=== PATIENT | female | born 1945 | race Caucasian/White ===

== ENCOUNTER → 2019-11-14 09:53 | Outpatient (BNVA) | payer MEDICARE, SELFPAY | PROVIDERS: Family Provider Family Medicine; PCP Family Medicine; Visit Provider Social Worker | DX: F33.1 Major depressive disorder, recurrent, moderate (principal); Z63.4 Disappearance and death of family member | CPT/HCPCS: 90834 ==

== ENCOUNTER → 2019-12-09 15:42 | Outpatient (BNVA) | payer MEDICARE, SELFPAY | PROVIDERS: Family Provider Family Medicine; PCP Family Medicine; Visit Provider Social Worker | DX: F33.1 Major depressive disorder, recurrent, moderate (principal); Z63.4 Disappearance and death of family member | CPT/HCPCS: 90834 ==

== ENCOUNTER → 2020-01-02 11:00 | Outpatient (BNVA) | payer MEDICARE, SELFPAY | PROVIDERS: Family Provider Family Medicine; PCP Family Medicine; Visit Provider Social Worker | DX: F33.1 Major depressive disorder, recurrent, moderate (principal); Z63.4 Disappearance and death of family member | CPT/HCPCS: 90834 ==

== ENCOUNTER → 2020-02-12 07:20 | Outpatient (BNVA) | payer MEDICARE, SELFPAY | PROVIDERS: Family Provider Family Medicine; PCP Family Medicine; Visit Provider Nurse Practitioner Psychiatric/Mental Health | DX: F33.1 Major depressive disorder, recurrent, moderate (principal); Z63.4 Disappearance and death of family member | CPT/HCPCS: 99213 ==

== ENCOUNTER 2020-02-26 14:23 | Outpatient (CLI) | payer MEDICARE, SELFPAY ==
--- NOTE | 2020-02-26 14:39 | XR_ITS ---
WS: [id number] LUMBAR SPINE: 3 VIEWS TECHNIQUE: AP, lateral and L5-S1 spot. HISTORY: SPONDYLOLISTHESIS COMPARISON: 11/14/2018 Posterior lumbar fusion from L4 to S1. L4 anterolisthesis by 8.6 mm. No lucency or fracture of the rivers rdware. Severe degenerative changes throughout the entire lumbar spine. Pedicles are all identified. Bone grafting along the lateral fusion hardware. Laminectomy defects at L4 and L5. SI joints are symmetric bilaterally. No soft tissue abnormalities. Moderate atherosclerosis aorta. XR/XR lumbar spine min 4V [id number] IMPRESSION: 1. Prior lumbar fusion at L4-5 with laminectomy defects. 2. Stable L4 anterolisthesis. 3. Severe lumbar spondylosis.
== END 2020-02-26 14:24 | disposition home or self-care (01) ==
LOC: RAD 14:31
PROVIDERS: Family Provider Family Medicine; PCP Family Medicine; Visit Provider Neurological Surgery
DX: M43.10 Spondylolisthesis, site unspecified (principal); M54.10 Radiculopathy, site unspecified; M54.5 Low back pain; M48.061 Spinal stenosis, lumbar region without neurogenic claudication; M43.26 Fusion of spine, lumbar region
CPT/HCPCS: 72114

== ENCOUNTER → 2020-02-27 08:26 | Outpatient (BNVA) | payer MEDICARE, SELFPAY | PROVIDERS: Family Provider Family Medicine; PCP Family Medicine; Visit Provider Social Worker | DX: Z63.4 Disappearance and death of family member (principal); F33.1 Major depressive disorder, recurrent, moderate | CPT/HCPCS: 90834 ==

== ENCOUNTER → 2020-03-19 08:31 | Outpatient (BNVA) | payer MEDICARE, SELFPAY | PROVIDERS: Family Provider Family Medicine; PCP Family Medicine; Visit Provider Social Worker | DX: Z63.4 Disappearance and death of family member (principal); F33.1 Major depressive disorder, recurrent, moderate | CPT/HCPCS: 90834 ==

== ENCOUNTER 2020-03-30 10:54 | Outpatient (CLI) | payer MEDICARE, SELFPAY ==
[2020-03-30 11:13] VITALS: BP 150/78; PULSE 77; RESP 18; TEMP 36.2; O2SAT 97; BMI 28.7
[2020-03-30] MEDS: denosumab 60 mg SDV SUBCUT (11:30)
== END 2020-03-30 10:55 | disposition home or self-care (01) ==
LOC: GILAB 10:58
PROVIDERS: Family Provider Family Medicine; PCP Family Medicine; Visit Provider Family Medicine
DX: M81.0 Age-related osteoporosis without current pathological fracture (principal)
CPT/HCPCS: 96372; J0897

== ENCOUNTER → 2020-04-13 08:12 | Outpatient (BNVA) | payer MEDICARE, SELFPAY | PROVIDERS: Family Provider Family Medicine; PCP Family Medicine; Visit Provider Social Worker | DX: Z63.4 Disappearance and death of family member (principal); F33.1 Major depressive disorder, recurrent, moderate | CPT/HCPCS: 90834 ==

== ENCOUNTER 2020-04-29 10:31 | Outpatient (CLI) | payer MEDICARE, SELFPAY ==
--- NOTE | 2020-04-29 10:42 | XR_ITS ---
WS: [id number] XR lumbar spine f/e only [id number] REASON FOR EXAM: LOW BACK PAIN/SPINAL STENOSIS LUMBAR REGION/RADICULOPATHY FINDINGS: This study shows posterior instrumentation L4-L5-S1 satisfactory seated and there is bone f usion also identified. There is retrolisthesis L2 to on L3 with eburnation along the articular surfaces and loss of the disc space. There is no fractures seen. With flexion extension is noted. XR/XR lumbar spine f/e only [id number] IMPRESSION: Stable fusion L4-L5-S1 1 with posterior instrumentation intraspinal fusion and bone fusion noted. Slight retrolisthesis L2 on 3 with loss of the disc spaces a nd suspected spinal stenosis.
== END 2020-04-29 10:32 | disposition home or self-care (01) ==
LOC: RAD 10:38
PROVIDERS: PCP Family Medicine; Visit Provider Physician Assistant Surgical
DX: M43.10 Spondylolisthesis, site unspecified (principal); M54.10 Radiculopathy, site unspecified; M54.5 Low back pain; M48.061 Spinal stenosis, lumbar region without neurogenic claudication; M43.27 Fusion of spine, lumbosacral region
CPT/HCPCS: 72120

== ENCOUNTER 2020-05-11 13:41 | Outpatient (CLI) | payer MEDICARE, SELFPAY ==
--- NOTE | 2020-05-11 13:48 | XR_ITS ---
WS: [id number] DEXA (DUAL ENERGY X-RAY ABSORPTIOMETRY) Bone mineral density was performed using a Polyheal machine. HISTORY: AGE RELATED OSTEOPOROSIS WITHOUT CURRENT PATH FX COMPARISON: None available. Left forearm BMD: 0.622 g/cm2. T score: -2.9 Z score: -0.4 Total hip BMD: Left: 0.791 g/cm2. T score: -1.7 Z score: 0.0 Right: 0.755 g/cm2. T score: -2.0 Z score: -0.2 Compared to the prior study from 05/09/2018. Bilateral hips bone mineral density has increased by 2.4%. XR/XR DEXA axial skeleton* [id number] IMPRESSION: OSTEOPOROSIS based upon the WHO classification for females. Patient has signifi cant risk for additional fractures. Slight improvement in bone mineral density within the hips since the prior stud y.
== END 2020-05-11 13:42 | disposition home or self-care (01) ==
PROVIDERS: Family Provider Family Medicine; PCP Family Medicine; Visit Provider Family Medicine
DX: M81.0 Age-related osteoporosis without current pathological fracture (principal)
CPT/HCPCS: 77080

== ENCOUNTER → 2020-05-21 08:36 | Outpatient (BNVA) | payer MEDICARE, SELFPAY | PROVIDERS: Family Provider Family Medicine; PCP Family Medicine; Referring Provider Family Medicine; Visit Provider Specialist | DX: G62.9 Polyneuropathy, unspecified (principal); R20.0 Anesthesia of skin; R55 Syncope and collapse; R53.1 Weakness | CPT/HCPCS: 99214 ==

== ENCOUNTER → 2020-06-11 11:09 | Outpatient (BNVA) | payer MEDICARE, SELFPAY | PROVIDERS: Family Provider Family Medicine; PCP Family Medicine; Visit Provider Dermatology | DX: L57.0 Actinic keratosis (principal); D18.01 Hemangioma of skin and subcutaneous tissue; L82.1 Other seborrheic keratosis; D23.9 Other benign neoplasm of skin, unspecified; B35.1 Tinea unguium; Z12.83 Encounter for screening for malignant neoplasm of skin | CPT/HCPCS: 17000; 17003; 99203; 99204 ==

== ENCOUNTER → 2020-06-12 07:36 | Outpatient (BNVA) | payer MEDICARE, SELFPAY | PROVIDERS: Family Provider Family Medicine; PCP Family Medicine; Visit Provider Nurse Practitioner Psychiatric/Mental Health | DX: F33.1 Major depressive disorder, recurrent, moderate (principal); Z63.4 Disappearance and death of family member | CPT/HCPCS: 99214 ==

== ENCOUNTER 2020-06-15 13:52 | Outpatient (CLI) | payer MEDICARE, SELFPAY ==
--- NOTE | 2020-06-15 14:15 | USCV_ITS ---
Maricruz Bravo Age: 75 Gender: F : 1945 Exam Date: 06/15/2020 14:10 Ordering Phys: Angely Flores MD Technologist: Bertha Aparicio Exam Location: [facility] [place] Indication: WEAKNESS Risk Factors: None Previous Vascular Surgery: None Right Brachial BP: / Left Brachial BP: / Right Left Velocity (cm/s) Spectral Plaque Velocity (cm/s) Spectral Plaque Syst/Diast Broadening Syst/Diast Broadening 78.80/ 17.80 Prox CCA 82.80 / 14.30 75.90/ 19.70 Mid CCA 74.60 / 16.40 59.30/ 12.40 Distal CCA 59.20 / 9.40 54.10/ 14.60 Prox ICA 106.00/ 26.80 59.70/ 13.90 Mid ICA 64.00 / 18.00 74.90/ 20.10 Distal ICA 63.60 / 17.90 83.20 ECA 67.80 0.99 ICA/CCA 1.42 Antegrade Vertebral Antegrade 56.20/ 12.50 cm/s 30.20/ 12.80 cm/s Tri Subclavian Bi 101.4 64.90 0 FINDINGS Comparison: none available. Waveforms are normal. No significant elevation of systolic or diastolic velocities. Minimal bilateral, scattered plaque with no elevation of velocity. CONCLUSIONS Bilateral ICA stenosis less than 50%. Dr. Cecilia Siddiqui DO (Electronically Signed) Final Date: 15 June 2020 16:18 S
== END 2020-06-15 13:53 | disposition home or self-care (01) ==
PROVIDERS: Family Provider Family Medicine; PCP Family Medicine; Visit Provider Specialist
DX: R53.1 Weakness (principal); I65.23 Occlusion and stenosis of bilateral carotid arteries
CPT/HCPCS: 93880

== ENCOUNTER → 2020-08-14 08:29 | Outpatient (BNVA) | payer MEDICARE, SELFPAY | PROVIDERS: Family Provider Family Medicine; PCP Family Medicine; Visit Provider Nurse Practitioner Psychiatric/Mental Health | DX: F33.1 Major depressive disorder, recurrent, moderate (principal); Z63.4 Disappearance and death of family member | CPT/HCPCS: 99213 ==

== ENCOUNTER → 2020-08-25 11:47 | Outpatient (BNVA) | payer MEDICARE, SELFPAY | PROVIDERS: Family Provider Family Medicine; PCP Family Medicine; Visit Provider Nurse Practitioner Family | DX: Z11.59 Encounter for screening for other viral diseases (principal); Z20.828 Contact with and (suspected) exposure to other viral communicable diseases; J06.9 Acute upper respiratory infection, unspecified | CPT/HCPCS: 87635 ==

== ENCOUNTER → 2020-09-28 08:02 | Day surgery (SDC) | payer MEDICARE, SELFPAY ==
[2020-09-28] MEDS: denosumab 60 mg SDV SUBCUT (08:15)
[2020-09-28 08:20] VITALS: BP 150/74; PULSE 79; RESP 18; TEMP 36.6; O2SAT 98
== END ==
PROVIDERS: PCP Family Medicine; Visit Provider Family Medicine
DX: M81.0 Age-related osteoporosis without current pathological fracture (principal)
CPT/HCPCS: 96372; 96374; 96375; J0897

== ENCOUNTER 2020-10-05 15:09 | Outpatient (CLI) | payer MEDICARE, SELFPAY ==
--- NOTE | 2020-10-05 15:17 | MM_ITS ---
WS: [id number] BILATERAL SCREENING DIGITAL MAMMOGRAM WITH CAD HISTORY: SCREENING COMPARISON: 08/23/2019 and 05/31/2018 Bilateral CC and MLO views submitted. Computer aided detection analyzed. Breast composition: There are scattered areas of fibroglandular density. No suspicious masses, microc alcifications or architectural distortion. MM/[place] [id number] IMPRESSION: BI-RADS: 1-Negative FOLLOW UP: 1 Year Follow-up
== END 2020-10-05 15:10 | disposition home or self-care (01) ==
LOC: RADSHAW 15:14
PROVIDERS: PCP Family Medicine; Visit Provider Family Medicine
DX: Z12.31 Encounter for screening mammogram for malignant neoplasm of breast (principal)
CPT/HCPCS: 77067

== ENCOUNTER → 2020-11-16 08:07 | Outpatient (BNVA) | payer MEDICARE, SELFPAY | PROVIDERS: PCP Family Medicine; Visit Provider Nurse Practitioner Psychiatric/Mental Health | DX: F33.1 Major depressive disorder, recurrent, moderate (principal); Z63.4 Disappearance and death of family member | CPT/HCPCS: 99213 ==

== ENCOUNTER → 2020-11-30 11:36 | Outpatient (BNVA) | payer MEDICARE, SELFPAY | PROVIDERS: PCP Family Medicine; Visit Provider Specialist | DX: G62.9 Polyneuropathy, unspecified (principal); Z87.891 Personal history of nicotine dependence | CPT/HCPCS: 99213 ==

== ENCOUNTER 2021-01-11 12:00 | Outpatient (CLI) | payer MEDICARE, SELFPAY | END 2021-01-11 12:01 | disposition home or self-care (01) | LOC: SLEEP 01-12 12:57 | PROVIDERS: PCP Family Medicine; Visit Provider Family Medicine | DX: G47.30 Sleep apnea, unspecified (principal) | CPT/HCPCS: G0399 ==

== ENCOUNTER → 2021-02-08 10:09 | Outpatient (BNVA) | payer MEDICARE, SELFPAY | PROVIDERS: PCP Family Medicine; Visit Provider Nurse Practitioner Psychiatric/Mental Health | DX: F33.1 Major depressive disorder, recurrent, moderate (principal); Z63.4 Disappearance and death of family member | CPT/HCPCS: 99213 ==

== ENCOUNTER → 2021-02-10 09:02 | Outpatient (BNVA) | payer OTHER, SELFPAY | PROVIDERS: PCP Family Medicine; Visit Provider Nurse Practitioner Psychiatric/Mental Health | DX: F33.1 Major depressive disorder, recurrent, moderate (principal) | CPT/HCPCS: 80061; 83036 ==

== ENCOUNTER → 2021-03-10 15:55 | Outpatient (BNVA) | payer MEDICARE, SELFPAY ==
[2021-02-25 09:52] VITALS: BP 145/58; BMI 29.4
== END ==
PROVIDERS: PCP Family Medicine; Visit Provider Podiatrist Foot & Ankle Surgery
DX: M79.672 Pain in left foot (principal); M79.671 Pain in right foot
CPT/HCPCS: 73630

== ENCOUNTER → 2021-03-26 13:01 | Day surgery (SDC) | payer MEDICARE, SELFPAY ==
[2021-02-25 09:52] VITALS: BP 145/58; BMI 29.4
[2021-03-26 13:16] VITALS: BP 158/70; PULSE 96; RESP 18; TEMP 36.4; O2SAT 100
[2021-03-26] MEDS: denosumab 60 mg SDV SUBCUT (13:17)
== END ==
PROVIDERS: PCP Family Medicine; Visit Provider Family Medicine
DX: M81.0 Age-related osteoporosis without current pathological fracture (principal)
CPT/HCPCS: 96372; J0897

== ENCOUNTER → 2021-05-24 07:08 | Outpatient (BNVA) | payer MEDICARE, SELFPAY ==
[2021-04-15 09:52] VITALS: BP 145/58; BMI 29.4
== END ==
PROVIDERS: PCP Family Medicine; Visit Provider Nurse Practitioner Psychiatric/Mental Health
DX: F33.1 Major depressive disorder, recurrent, moderate (principal); Z63.4 Disappearance and death of family member
CPT/HCPCS: 99214

== ENCOUNTER → 2021-06-23 08:43 | Outpatient (BNVA) | payer MEDICARE, SELFPAY ==
[2021-04-15 09:52] VITALS: BP 145/58; BMI 29.4
== END ==
PROVIDERS: PCP Family Medicine; Visit Provider Nurse Practitioner Psychiatric/Mental Health
DX: F33.1 Major depressive disorder, recurrent, moderate (principal); Z63.4 Disappearance and death of family member
CPT/HCPCS: 99214

== ENCOUNTER → 2021-07-28 09:49 | Outpatient (BNVA) | payer MEDICARE, SELFPAY ==
[2021-04-15 09:52] VITALS: BP 145/58; BMI 29.4
== END ==
PROVIDERS: PCP Family Medicine; Visit Provider Nurse Practitioner Psychiatric/Mental Health
DX: F33.1 Major depressive disorder, recurrent, moderate (principal); Z63.4 Disappearance and death of family member
CPT/HCPCS: 99214

== ENCOUNTER → 2021-08-02 15:09 | Outpatient (BNVA) | payer MEDICARE, SELFPAY ==
[2021-04-15 09:52] VITALS: BP 145/58; BMI 29.4
== END ==
PROVIDERS: PCP Family Medicine; Visit Provider Specialist
DX: G62.9 Polyneuropathy, unspecified (principal); G95.0 Syringomyelia and syringobulbia; G25.3 Myoclonus
CPT/HCPCS: 99213; 99214

== ENCOUNTER → 2021-08-25 10:46 | Outpatient (BNVA) | payer MEDICARE, SELFPAY ==
[2021-04-15 09:52] VITALS: BP 145/58; BMI 29.4
== END ==
PROVIDERS: PCP Family Medicine; Visit Provider Nurse Practitioner Psychiatric/Mental Health
DX: F33.1 Major depressive disorder, recurrent, moderate (principal); Z63.4 Disappearance and death of family member
CPT/HCPCS: 99214

== ENCOUNTER → 2021-09-17 09:25 | Day surgery (SDC) | payer MEDICARE, SELFPAY ==
[2021-04-15 09:52] VITALS: BP 145/58; BMI 29.4
[2021-09-17 09:31] VITALS: BMI 29.2
[2021-09-17 09:40] VITALS: BP 165/86; PULSE 72; RESP 18; TEMP 36.5; O2SAT 97
[2021-09-17] MEDS: denosumab 60 mg SDV SUBCUT (10:43)
== END ==
PROVIDERS: PCP Family Medicine; Visit Provider Family Medicine
DX: M81.0 Age-related osteoporosis without current pathological fracture (principal)
CPT/HCPCS: 36415; 82310; 96372; J0897

== ENCOUNTER 2021-10-13 10:34 | Outpatient (CLI) | payer MEDICARE, SELFPAY ==
[2021-04-15 09:52] VITALS: BP 145/58; BMI 29.4
--- NOTE | 2021-10-13 10:44 | MM_ITS ---
WS: [id number] BILATERAL DIGITAL SCREENING MAMMOGRAPHY WITH CAD CLINICAL INFORMATION: SCREENING HISTORY: Screening mammogram. No current complaints. COMPARISON: October 05, 2020 TECHNIQUE: Bilateral CC and MLO views. FINDINGS: Scattered fibroglandular densities bilaterally. Vascular calcification right breast. No suspicious fo angelita mass, asymmetry, calcifications, or architectural distortion. No evidence of malignancy. MM/[place] [id number] IMPRESSION: BI-RADS: 2-Benign FOLLOW UP: 1 Year Follow-up Recommend return to annual screening mammography.
== END 2021-10-13 10:35 | disposition home or self-care (01) ==
LOC: RADSHAW 10:43
PROVIDERS: PCP Family Medicine; Visit Provider Family Medicine
DX: Z12.31 Encounter for screening mammogram for malignant neoplasm of breast (principal)
CPT/HCPCS: 77067

== ENCOUNTER → 2021-11-25 11:33 | Outpatient (BNVA) | payer MEDICARE, SELFPAY ==
[2021-04-15 09:52] VITALS: BP 145/58; BMI 29.4
== END ==
PROVIDERS: PCP Family Medicine; Visit Provider Nurse Practitioner Psychiatric/Mental Health
DX: F33.1 Major depressive disorder, recurrent, moderate (principal); Z63.4 Disappearance and death of family member
CPT/HCPCS: 99213; 99214

== ENCOUNTER → 2021-12-08 15:18 | Outpatient (BNVA) | payer MEDICARE, SELFPAY ==
[2021-04-15 09:52] VITALS: BP 145/58; BMI 29.4
== END ==
PROVIDERS: PCP Family Medicine; Referring Provider Family Medicine; Visit Provider Specialist
DX: M25.542 Pain in joints of left hand (principal); M79.643 Pain in unspecified hand
CPT/HCPCS: 73130

== ENCOUNTER 2021-12-08 16:41 | Outpatient (CLI) | payer MEDICARE, SELFPAY ==
[2021-04-15 09:52] VITALS: BP 145/58; BMI 29.4
== END 2021-12-08 16:42 | disposition home or self-care (01) ==
LOC: SPT 16:41
PROVIDERS: PCP Family Medicine; Visit Provider Specialist
DX: Z46.89 Encounter for fitting and adjustment of other specified devices (principal); M18.12 Unilateral primary osteoarthritis of first carpometacarpal joint, left hand
CPT/HCPCS: 97760; L3924

== ENCOUNTER → 2022-03-03 13:31 | Outpatient (BNVA) | payer MEDICARE, SELFPAY ==
[2021-04-15 09:52] VITALS: BP 145/58; BMI 29.4
== END ==
PROVIDERS: PCP Family Medicine; Visit Provider Nurse Practitioner Psychiatric/Mental Health
DX: F33.1 Major depressive disorder, recurrent, moderate (principal)
CPT/HCPCS: 80061; 83036

== ENCOUNTER → 2022-03-16 08:55 | Day surgery (SDC) | payer MEDICARE, SELFPAY ==
[2021-04-15 09:52] VITALS: BP 145/58; BMI 29.4
[2022-03-16 09:20] VITALS: BP 143/63; PULSE 67; RESP 18; TEMP 36.1; O2SAT 97
[2022-03-16 09:33] LABS: Calcium 10.2 mg/dL (8.5-10.5)
--- NOTE | 2022-03-16 09:40 | PC.NURSE ---
Pt to GI lab for Prolia injection. Calcium level today 10.2. Prolia give subq to left upper arm. Tolerated well.
[2022-03-16] MEDS: denosumab 60 mg SDV SUBCUT (09:43)
== END ==
PROVIDERS: PCP Family Medicine; Visit Provider Family Medicine
DX: M18.10 Unilateral primary osteoarthritis of first carpometacarpal joint, unspecified hand (principal)
CPT/HCPCS: 36415; 82310; 96372; J0897

== ENCOUNTER → 2022-03-23 08:41 | Outpatient (BNVA) | payer MEDICARE, SELFPAY ==
[2021-04-15 09:52] VITALS: BP 145/58; BMI 29.4
== END ==
PROVIDERS: PCP Family Medicine; Visit Provider Nurse Practitioner Psychiatric/Mental Health
DX: F33.1 Major depressive disorder, recurrent, moderate (principal); Z63.4 Disappearance and death of family member
CPT/HCPCS: 99214

== ENCOUNTER → 2022-04-29 10:48 | Outpatient (BNVA) | payer MEDICARE, SELFPAY ==
[2022-03-25 13:48] VITALS: BP 153/69; BMI 29.8
== END ==
PROVIDERS: PCP Family Medicine; Visit Provider Otolaryngology
DX: H91.93 Unspecified hearing loss, bilateral (principal); H93.13 Tinnitus, bilateral; H65.33 Chronic mucoid otitis media, bilateral; H69.83 Other specified disorders of Eustachian tube, bilateral; M26.623 Arthralgia of bilateral temporomandibular joint; J30.9 Allergic rhinitis, unspecified
CPT/HCPCS: 99204

== ENCOUNTER → 2022-06-01 14:35 | Outpatient (BNVA) | payer MEDICARE, SELFPAY ==
[2022-03-25 13:48] VITALS: BP 153/69; BMI 29.8
== END ==
PROVIDERS: PCP Family Medicine; Visit Provider Podiatrist Foot & Ankle Surgery
DX: B35.1 Tinea unguium (principal); G62.9 Polyneuropathy, unspecified; I73.9 Peripheral vascular disease, unspecified; M76.72 Peroneal tendinitis, left leg
CPT/HCPCS: 11721; 99213

== ENCOUNTER → 2022-06-29 13:26 | Outpatient (BNVA) | payer MEDICARE, SELFPAY ==
[2022-03-25 13:48] VITALS: BP 153/69; BMI 29.8
== END ==
PROVIDERS: PCP Family Medicine; Visit Provider Otolaryngology
DX: H91.93 Unspecified hearing loss, bilateral (principal); H93.13 Tinnitus, bilateral; H69.83 Other specified disorders of Eustachian tube, bilateral
CPT/HCPCS: 99212; 99213

== ENCOUNTER 2022-07-06 16:15 | Outpatient (CLI) | payer MEDICARE, SELFPAY ==
[2022-03-25 13:48] VITALS: BP 153/69; BMI 29.8
== END 2022-07-06 16:16 | disposition home or self-care (01) ==
LOC: SPT 16:16
PROVIDERS: PCP Family Medicine; Visit Provider Podiatrist Foot & Ankle Surgery
DX: Z46.89 Encounter for fitting and adjustment of other specified devices (principal); M76.70 Peroneal tendinitis, unspecified leg; M18.12 Unilateral primary osteoarthritis of first carpometacarpal joint, left hand
CPT/HCPCS: 20610; 97760; 99213; J1100; J2795; J3301; L3030

== ENCOUNTER → 2022-08-24 11:21 | Outpatient (BNVA) | payer MEDICARE, SELFPAY ==
[2022-03-25 13:48] VITALS: BP 153/69; BMI 29.8
== END ==
PROVIDERS: PCP Family Medicine; Visit Provider Podiatrist Foot & Ankle Surgery
DX: M76.70 Peroneal tendinitis, unspecified leg (principal); G62.9 Polyneuropathy, unspecified; I73.9 Peripheral vascular disease, unspecified; L60.3 Nail dystrophy
CPT/HCPCS: 99213; 99214

== ENCOUNTER → 2022-09-16 08:59 | Day surgery (SDC) | payer MEDICARE, SELFPAY ==
[2021-04-15 09:52] VITALS: BP 145/58; BMI 29.4
[2022-03-25 13:48] VITALS: BP 153/69; BMI 29.8
[2022-09-16 09:24] VITALS: BP 162/75; PULSE 77; RESP 18; TEMP 36.6; O2SAT 98
[2022-09-16 09:39] LABS: Calcium 10.8 mg/dL (8.5-10.5)
[2022-09-16] MEDS: denosumab 60 mg SDV SUBCUT (09:42)
== END ==
PROVIDERS: PCP Family Medicine; Visit Provider Family Medicine
DX: M81.0 Age-related osteoporosis without current pathological fracture (principal)
CPT/HCPCS: 36415; 82310; 96372; J0897

== ENCOUNTER → 2022-10-18 09:18 | Outpatient (BNVA) | payer MEDICARE, SELFPAY ==
[2022-03-25 13:48] VITALS: BP 153/69; BMI 29.8
== END ==
PROVIDERS: PCP Family Medicine; Visit Provider Specialist
DX: G62.9 Polyneuropathy, unspecified (principal); I65.29 Occlusion and stenosis of unspecified carotid artery; R26.89 Other abnormalities of gait and mobility; Z86.73 Personal history of transient ischemic attack (TIA), and cerebral infarction without residual deficits
CPT/HCPCS: 99214

== ENCOUNTER → 2022-11-15 09:00 | Outpatient (BNVA) | payer MEDICARE, SELFPAY ==
[2022-03-25 13:48] VITALS: BP 153/69; BMI 29.8
== END ==
PROVIDERS: PCP Family Medicine; Visit Provider Nurse Practitioner Family
DX: S49.92XA Unspecified injury of left shoulder and upper arm, initial encounter (principal); X58.XXXA Exposure to other specified factors, initial encounter; M67.912 Unspecified disorder of synovium and tendon, left shoulder
CPT/HCPCS: 73030; 99214

== ENCOUNTER → 2022-11-24 10:16 | Outpatient (BNVA) | payer MEDICARE, SELFPAY ==
[2022-03-25 13:48] VITALS: BP 153/69; BMI 29.8
== END ==
PROVIDERS: PCP Family Medicine; Visit Provider Specialist
DX: M18.12 Unilateral primary osteoarthritis of first carpometacarpal joint, left hand (principal)
CPT/HCPCS: 20610; J1100; J2795; J3301

== ENCOUNTER 2022-11-24 14:55 | Outpatient (CLI) | payer MEDICARE, SELFPAY ==
[2022-03-25 13:48] VITALS: BP 153/69; BMI 29.8
== END 2022-11-24 14:56 | disposition home or self-care (01) ==
LOC: SPT 14:56
PROVIDERS: PCP Family Medicine; Visit Provider Specialist
DX: Z46.89 Encounter for fitting and adjustment of other specified devices (principal); M18.12 Unilateral primary osteoarthritis of first carpometacarpal joint, left hand
CPT/HCPCS: 97760; L3924

== ENCOUNTER 2022-12-01 08:11 | Outpatient (CLI) | payer MEDICARE, SELFPAY ==
[2022-03-25 13:48] VITALS: BP 153/69; BMI 29.8
--- NOTE | 2022-12-01 08:34 | MM_ITS ---
WS: [id number] BILATERAL SCREENING DIGITAL TOMOSYNTHESIS MAMMOGRAM WITH CAD HISTORY: SCREENING COMPARISON: 10/13/2021 and 10/05/2020 Bilateral CC and MLO views with tomosynthesis and synthetic mammography submitted. Computer aided det ection analyzed. Breast composition: There are scattered areas of fibroglandular density. No suspicious masses, microc alcifications or architectural distortion. MM/[place] [id number] IMPRESSION: BI-RADS: 1-Negative FOLLOW UP: 1 Year Follow-up
== END 2022-12-01 08:12 | disposition home or self-care (01) ==
LOC: RAD 08:11
PROVIDERS: PCP Family Medicine; Visit Provider Family Medicine
DX: Z12.31 Encounter for screening mammogram for malignant neoplasm of breast (principal)
CPT/HCPCS: 77063; 77067

== ENCOUNTER 2022-12-23 10:28 | Outpatient (CLI) | payer MEDICARE, SELFPAY ==
[2022-03-25 13:48] VITALS: BP 153/69; BMI 29.8
--- NOTE | 2022-12-23 11:00 | USCV_ITS ---
Maricruz Bravo Age: 77 Gender: F : 1945 Exam Date: 12/23/2022 11:06 Ordering Phys: Angely Flores MD Technologist: MIRANDA Exam Location: [facility] [place] Indication: TIA Risk Factors: Previous Vascular Surgery: Right Brachial BP: / Left Brachial BP: / Right Left Velocity (cm/s) Spectral Plaque Velocity (cm/s) Spectral Plaque Syst/Diast Broadening Syst/Diast Broadening 69.90/ 14.80 Prox CCA 87.80 / 19.40 90.90/ 21.80 Mid CCA 99.40 / 16.30 79.20/ 17.90 Distal CCA 61.10 / 13.80 46.60/ 10.50 Prox ICA 108.80/ 23.40 54.40/ 13.70 Mid ICA 85.80 / 21.10 65.30/ 18.30 Distal ICA 99.10 / 26.50 55.90 ECA 52.00 0.72 ICA/CCA 1.09 Vertebral 77.60/ 17.10 cm/s 37.40/ 7.50 cm/s Subclavian 146.6 72.30 0 CONCLUSIONS Right ICA stenosis <50%. Mild atheromatous plaque right carotid bulb/ICA. Left ICA stenosis <50%. Mild atheromatous plaque left carotid bulb/ICA. Normal antegrade Doppler flow noted in the right vertebral artery. Normal antegrade Doppler flow noted in the left vertebral artery. Timothy Vazquez MD (Electronically Signed) Final Date: 23 December 2022 12:29 S
== END 2022-12-23 10:29 | disposition home or self-care (01) ==
LOC: RAD 10:36
PROVIDERS: PCP Family Medicine; Visit Provider Specialist
DX: G45.9 Transient cerebral ischemic attack, unspecified (principal)
CPT/HCPCS: 93880

== ENCOUNTER → 2023-03-06 13:30 | Outpatient (BNVA) | payer MEDICARE, SELFPAY ==
[2022-03-25 13:48] VITALS: BP 153/69; BMI 29.8
== END ==
PROVIDERS: PCP Family Medicine; Visit Provider Otolaryngology
DX: H91.93 Unspecified hearing loss, bilateral (principal)
CPT/HCPCS: 99213

== ENCOUNTER → 2023-03-16 09:59 | Day surgery (SDC) | payer MEDICARE, SELFPAY ==
[2022-03-25 13:48] VITALS: BP 153/69; BMI 29.8
--- NOTE | 2023-03-16 09:42 | PC.NURSE ---
Lab results faxed to GI infusions from Diane Patel's clinic notes Calcium level drawn on 03/08/23 at 10.6.
[2023-03-16] MEDS: denosumab 60 mg SDV SUBCUT (10:10)
[2023-03-16 10:13] VITALS: BP 129/69; PULSE 84; RESP 18; TEMP 36.5; O2SAT 93
== END ==
PROVIDERS: PCP Family Medicine; Visit Provider Family Medicine
DX: M81.0 Age-related osteoporosis without current pathological fracture (principal)
CPT/HCPCS: 96372; J0897

== ENCOUNTER 2023-04-27 13:08 | Outpatient (CLI) | payer MEDICARE, SELFPAY ==
[2022-03-25 13:48] VITALS: BP 153/69; BMI 29.8
--- NOTE | 2023-04-27 13:15 | XR_ITS ---
WS: [id number] SCREENING DEXA SCAN AMT CLINICAL INFORMATION: AGE RELATED OSTEOPOROSIS WITHOUT CURRENT PATHOLOGICAL FRACTU COMPARISON: 2019 FINDINGS: The L1-L4 bone mineral density measures 0.63. This corresponds to a T score score of -2.8 and Z score of -0.1. Left femoral neck bone mineral density measures 0.820 g/cm2. This corresponds to a T score of -1.5 an d Z score of 0.3. Right femoral neck bone mineral density measures 0.757 g/cm2. This corresponds to a T score -2.0of an d Z score of -0.2. Mean femoral neck bone mineral density measures 0.788 g/cm2. This corresponds to a T score of -1.7 an d Z score of 0.1. XR/XR DEXA axial skeleton* [id number] IMPRESSION: Osteoporosis LEFT forearm. Osteopenia femoral necks. Patient's FRAX calculated 10 year probability for major osteoporotic fracture i s 26.8 % and osteoporotic hip fracture is 8.5%. Since 2019: Bone mineral density LEFT forearm increased 1.3% Bone mineral density femoral necks increased 1.9%
== END 2023-04-27 13:09 | disposition home or self-care (01) ==
PROVIDERS: PCP Family Medicine; Visit Provider Family Medicine
DX: Z13.820 Encounter for screening for osteoporosis (principal); M81.0 Age-related osteoporosis without current pathological fracture; M85.852 Other specified disorders of bone density and structure, left thigh; M85.851 Other specified disorders of bone density and structure, right thigh
CPT/HCPCS: 77080

== ENCOUNTER → 2023-07-25 09:02 | Outpatient (BNVA) | payer MEDICARE, SELFPAY ==
[2022-03-25 13:48] VITALS: BP 153/69; BMI 29.8
== END ==
PROVIDERS: PCP Family Medicine; Visit Provider Nurse Practitioner Family
DX: L57.0 Actinic keratosis (principal); L82.1 Other seborrheic keratosis; L81.4 Other melanin hyperpigmentation; L57.8 Other skin changes due to chronic exposure to nonionizing radiation
CPT/HCPCS: 17000; 17003; 99213

== ENCOUNTER 2023-09-21 09:51 | Oncology outpatient (recurring) (ONCR) | payer MEDICARE, SELFPAY ==
[2022-03-25 13:48] VITALS: BP 153/69; BMI 29.8
--- OUTSIDE RECORDS SUMMARY | 2023-09-21 09:54 | XMS_ITS | Continuity of Care Document ---
Author Name Unknown Organization [facility] Address [address] [place] [address]- Care Team Providers Care Telecommunication Tower Technician Name Role Phone Diane Patel MD Primary Care Physician [phone] Encounter 07/19/23 - 07/20/23 [facility] [address] [place] [address]- [place] Encounter Diagnosis Body mass index [BMI] 29.0-29.9, adult(Discharge Diagnosis) - 07/19/23 Swollen lymph nodes(Discharge Diagnosis) - 07/19/23 Attending Physician: Ingrid Sosa NP Allergies, Adverse Reactions, Alerts Substance Reaction Severity Status Shingrix Rash Active aspirin Rash Moderate Active Fosamax Bone pain Active Assessment and Plan Future Appointments Appointment Date:12/22/2023 09:00:00 AM Scheduled Provider: Location:[facility] Appointment Type:Lab Appointment Date:12/28/2023 10:00:00 AM Scheduled Provider:Diane Patel MD Location:[facility] Appointment Type:Established Patient Future Scheduled Tests Laboratory* Lipid Panel with calculated LDL 04/11/23 * CBC-d 04/11/23 * Iron and TIBC 04/11/23 * TSH 04/11/23 * CMP 04/11/23 Radiology* XR Knee 3 View Right 04/24/23 * BD Bone Densitometry 04/11/23 Immunizations Given and Recorded Vaccine Date Status Refusal Reason COVID-19 SARS-CoV-2 mRNA Pfizer (adult) 09/29/22 R ecorded COVID-19 SARS-CoV-2 mRNA Pfizer (adult) 1 03/30/22 Recorded COVID-19 SARS-CoV-2 mRNA Pfizer (adult) 9/29/21 R ecorded COVID-19 SARS-CoV-2 mRNA Pfizer (adult) 01/08/21 R ecorded COVID-19 SARS-CoV-2 mRNA Pfizer (adult) 12/11/20 R ecorded influenza virus vaccine 09/02/22 Recorded influenza virus vaccine 09/02/21 Recorded influenza virus vaccine 2 07/28/20 Recorded influenza virus vaccine 09/03/19 Recorded influenza virus vaccine 08/28/19 Recorded influenza virus vaccine 08/24/17 Given influenza virus vaccine 3 09/02/16 Recorded influenza virus vaccine 08/13/16 Recorded influenza virus vaccine 08/09/15 Given influenza virus vaccine 08/19/14 Given influenza virus vaccine 07/14/14 Given influenza virus vaccine 08/28/12 Given influenza virus vaccine 08/22/11 Given influenza virus vaccine 09/16/08 Given influenza virus vaccine 09/06/07 Given influenza virus vaccine 09/06/06 Given zoster vaccine Shingrix, inactivated 07/10/18 Jamison rded zoster vaccine Shingrix, inactivated 05/18/18 Jamison rded zoster vaccine Shingrix, inactivated 04/13/18 Jamison rded Prevnar 13 pneumococcal 13-valent 04/09/15 Given Tdap-ADULT/ADOL tetanus/diphth/pertuss,a 05/06/14 Given tetanus-diphth toxoids (Td) adult/adol 02/14/11 Gi maxi tetanus-diphth toxoids (Td) adult/adol 07/14/99 Gi maxi Pneumovax 23 pneumococcal 23-valent 11/09/10 Given Zoster Vaccine Live 10/28/10 Given 1Location History: [facility], 2Location History: [facility] 3Location History: [facility],[place] Medications acetaminophen-hydrocodone 325 mg-5 mg oral tablet 1 tab, By mouth, QID, PRN for pain, 28 tab, 0, 0, Substitution Permitted Start Date: 09/20/22 Status: Ordered acyclovir 800 mg oral tablet 800 mg = 1 tab, By mouth, 5XD, # 35 tab, Refill(s) 3, Pharmacy: [facility], [id number], 1 tab By mouth 5XD,x7 Days, 74.66, 04/11/23 10:18:00 CDT, kg, Weight (kg) (Clinical) Start Date: 05/11/23 Stop Date: 06/08/23 Status: Ordered buPROPion 200 mg/12 hours oral tablet, extended release 200 mg = 1 tab, By mouth, Daily, # 60 tab, Refill(s) 0 Start Date: 09/27/21 Status: Ordered Calcium 600+D 1 tab, By mouth, BID, last dose 12/04/19, Refill(s) 0 Start Date: 11/19/15 Status: Ordered Cpap Machine Cpap Machine, See Instructions, Use nightly as directed G47.30 Length of need 99, # 1 EA, Refills(s) 0, Print Requisition, Supply Start Date: 09/21/20 Status: Ordered Cpap Supplies, Cpap Cpap Supplies, Cpap, See Instructions, G47.30 Auto titrating CPAP 6 -14 cm H2O, # 1 EA, Refills(s) 0, Print Requisition, Supply Start Date: 01/21/21 Status: Ordered dorzolamide-timolol ophthalmic 2%-0.5% solution 1 Drops, Both Eyes, BID, # 10 mL, Refill(s) 0 Start Date: 07/19/22 Status: Ordered Fish Oil 500 mg oral capsule 1,000 mg, By mouth, Daily, # 60 cap, Refill(s) 0 Start Date: 09/21/20 Status: Ordered folic acid 0.4 mg, By mouth, Daily, last dose 12/04/19, Refill(s) 0 Start Date: 11/19/15 Status: Ordered gabapentin 600 mg oral tablet See Instructions, Take 1 tablet every morning, then take 1 tabs at noon and 2 tab every evening., #360 tab, Refill(s) 3, Pharmacy: [facility], [id number], Instructions Replace Required Details, TAB Start Date: 10/31/16 Status: Ordered latanoprost ophthalmic 0.005% solution 1 Drops, Both Eyes, at bedtime, # 2.5 mL, Refill(s) 0 Start Date: 09/20/19 Status: Ordered levothyroxine 50 mcg (0.05 mg) oral tablet = 1 tab, By mouth, Daily, # 90 tab, Refill(s) 2, Pharmacy: [facility], [id number], Take 1 tablet by mouth once daily, 74.66, 04/11/23 10:18:00 CDT, kg, Weight (kg) (Clinical) Start Date: 04/19/23 Status: Ordered MiraLax oral powder for reconstitution 17 = g, By mouth, Daily, Constipation, # 255 g, Refill(s) 0 Start Date: 08/03/15 Stop Date: 08/13/15 Status: Ordered Multivitamin By mouth, Daily, last dose 12/04/19, Refill(s) 0 Start Date: 08/03/15 Status: Ordered Prolia 60 mg/mL subcutaneous solution 60 mg, SubQ, Q6Mo, # 1 EA, Refill(s) 2 Start Date: 08/25/22 Status: Ordered propranolol 10 mg oral tablet 10 mg = 1 tab, By mouth, BID, # 180 tab, Refill(s) 0 Start Date: 09/27/21 Status: Ordered Refresh PM ophthalmic ointment 1 application, Both Eyes, at bedtime, for dry eyes, # 3.5 g, Refill(s) 0 Start Date: 04/04/22 Status: Ordered triamcinolone topical 0.1% cream 1 application, Topical, TID, # 30 g, Refill(s) 0, Route to Pharmacy Electronically, [facility]: [id number], [id number], 1 application Topical TID, 76.93, 07/19/22 9:26:00 CDT, kg, Weight Start Date: 07/19/22 Status: Ordered Vitamin B12 500 mcg oral tablet 500 mcg = 1 tab, By mouth, Daily, last dose 12/04/19, Refill(s) 0 Start Date: 05/22/19 Status: Ordered Vitamin D3 5000 intl units (125 mcg) oral capsule See Instructions, TAKE 1 CAPSULE BY MOUTH DAILY WITH FOOD, # 100 cap, Refill(s) 11, Pharmacy: [facility] #[id number], [id number], Instructions Replace Required Details, TAKE 1 CAPSULE BY MOUTH DAILY WITH FOOD, 63, 07... Start Date: 05/26/20 Status: Ordered Xanax 0.25 mg oral tablet 0.25 mg, By mouth, BID, PRN Anxiety, 15 EA, 0, 0, Substitution Permitted, [facility], 63, Height (inches) (Clinical), 04/11/23 10:15:00 CDT, in, 74.66, Weight (kg) (Clinical), 04/11/23 10:18:00 CDT, kg Start Date: 06/29/23 Status: Ordered Problem List Condition Confirmation Course Effective Dates Status Health Status Informant Spondylolisthesis, acquired Confirmed Active Trigger finger (acquired) Confirmed 09/09/14 Active Allergic urticaria Confirmed 02/04/15 Active Anemia Confirmed Active Generalized weakness Confirmed Active Benign positional vertigo Confirmed 02/04/15 Active Bilateral hearing loss Confirmed Active Weakness of both arms Confirmed Active Bone pain Confirmed Active Screening for breast cancer Confirmed Active Bursitis of right shoulder Confirmed Active Change in nail appearance Confirmed Active CKD (chronic kidney disease) Confirmed Active Constipation Confirmed 03/20/07 Active Contact dermatitis Confirmed Active Depression Confirmed 01/09/12 Active Patellofemoral pain syndrome of right knee Confirmed Active Peripheral neuropathy Confirmed 09/25/06 Active Dizziness Confirmed Active Leg edema, right Confirmed Active Lower leg edema Confirmed Active Ex-smoker Confirmed Active patient Fall from slipping on ice Confirmed Active Chronic GERD Confirmed Active History of iron deficiency anemia Confirmed 03/20/07 Active Headache Confirmed Active Hypercholesterolemia Confirmed 09/25/06 Active Hypothyroidism Confirmed 09/25/06 Active Balance problems Confirmed Active Right knee pain Confirmed Active Low back pain Confirmed Active Spondylolisthesis of lumbar region Confirmed Active Lung nodule Confirmed Active Myalgia and myositis Confirmed 11/16/11 Active Osteoporosis Confirmed Active Screening for colon cancer Confirmed Active Colon polyp 2004 Active Postmenopausal Confirmed Active Radicular syndrome of right leg Confirmed Active Shoulder pain Confirmed 04/09/15 Active Skin lesion Confirmed Active Sleep apnea Confirmed 03/07/13 Active Cervical spinal stenosis Confirmed Active Lumbar spinal stenosis Confirmed Active Dry eye syndrome Confirmed 04/11/14 Active 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 Active Tendonitis Confirmed 09/09/14 Active Tinnitus Confirmed Active Muscle tremor Confirmed Active Edema of both lower legs due to peripheral venous insufficiency Confirmed Active Vitamin D deficiency Confirmed Active Procedures Procedure Date Related Diagnosis Body Site Status Sleep study 1 01/11/21 Completed dexa 2, 3 05/11/20 Completed L4-S1 PLIF 01/14/20 Completed R TKA 05/29/19 Completed Removal of hardware right tibia 03/2019 Completed ORIF right radius fracture 2015 Completed external fixator application to right tibia 2014 Completed Colonoscopy 4 10/26/12 Completed Cataract extraction with Int raocular lens, bilateral 2006 Completed Breast lumpectomy 1998 Compl eted tonsillectomy Completed [place] teeth extraction. Completed 1Obstructive sleep apnea, nocturnal hypoxemia, 2Osteoporosis left forearm, osteopenia femoral necks, patient's FRAX calculated 10 year probability for major osteoporotic fracture is 26.8% and osteoporotic hip fracture is 8.5%, since 2019 bone density has increased by 1.3% in the left forearm and 1.9% in the left femoral necks, lumbar T-score is-2.8, left femoral neck T-score is-1.5, right femoral neck T-score is-2.0, mean femoral neck T- score is -1.7 3Osteoporosis, left forearm T-score is-2.9, left hip T-score is-1.7, right hip T-score is -2.0, bilateral hips bone mineral density has increased by 2.4% since her last exam 4Diverticulosis, repeat 5 years due to history of polyps 5Negative Vital Signs Most recent to oldest [Reference Range]: 1 Blood Pressure 122/76 (07/19/23 10:35 AM) Height (inches) (Clinical) 63 in (07/19/23 10:35 AM) Weight (kg) (Clinical) 74.55 kg (07/19/23 10:35 AM) BMI (Clinical) 29 kg/m2 (07/19/23 10:35 AM) Social History Social History Type Response Smoking Status Former smoker; Smoke less tobacco use: Never; Has the patient smoked in the last 365 days, even once? No entered on: 10/04/22 Sex Female Implantable Device List Procedure Provider Procedure Date Device Type Site Fusion Posterior Lumbar Interbody with I Unknown 01/14/20 Unknown Unknown Device Identifier Serial Number Lot or Batch Number Manufacturing Date Expiration Date Distinct Identification Code MRI Safety Implantable Status Assigning Authority [id number] Unknown [id number] Unknown 07/13/21 Unknown Unknown Active GS1 [id number] 01 Unknown [id number] Unknown 10/29/22 Unknown Unknown Active [facility] [id number] Unknown [id number] Unknown 05/14/27 Unknown Unknown Active GS1 [id number] Unknown [id number] Unknown 08/01/20 Unknown Unknown Active GS1 Unknown Unknown Unknown Unknown Unknown Unknown Unknown Active Unk nown Unknown Unknown Unknown Unknown Unknown Unknown Unknown Active Unk nown Unknown Unknown Unknown Unknown Unknown Unknown Unknown Active Unk nown Unknown Unknown Unknown Unknown Unknown Unknown Unknown Active Unk nown Unknown Unknown Unknown Unknown Unknown Unknown Unknown Active Unk nown Procedure Provider Procedure Date Device Type Site Arthroplasty Knee Total Unknown 05/29/19 Unknown U nknown Device Identifier Serial Number Lot or Batch Number Manufacturing Date Expiration Date Distinct Identification Code MRI Safety Implantable Status Assigning Authority Unknown Unknown [id number] Unknown 12/13/28 Unknown Unknown Active Unknown [id number] Unknown [id number] Unknown 09/12/20 Unknown Unknown Active GS1 [id number] [id number] Unknown [id number] Unknown 10/12/20 Unknown Unknown Active GS1 [id number] [id number] Unknown [id number] Unknown 10/12/20 Unknown Unknown Active GS1 [id number] 747 Unknown [id number] Unknown 10/12/20 Unknown Unknown Active GS1 [id number] 317 Unknown [id number] Unknown 06/25/23 Unknown Unknown Active GS1 [id number] 085 Unknown [id number] Unknown 01/10/29 Unknown MR Conditi onal Active GS1 Unknown Unknown [id number] Unknown 12/12/23 Unknown Unknown Active Unknown Unknown Unknown [id number] Unknown 08/12/23 Unknown Unknown Active Unknown Patient Care team information Care Team Personnel Name: Diane Patel MD Position: PX Physician - Family Practice Member Role: Primary Care Physician Address: Address: [address] [place] [address]- Care Team Related Persons Name: TOBY BENJAMIN Address: home Name: TOBY BENJAMIN Address: home Name: JULISA ELIAS Address: home
--- OUTSIDE RECORDS SUMMARY | 2023-09-21 09:54 | XMS_ITS | Continuity of Care Document ---
Author Name Unknown Organization [facility] Address [address] [facility] [place] [facility] [place] [address]- Care Team Providers Care Pediatric Occupational Therapist Name Role Phone Diane Patel MD Primary Care Physician [phone] Encounter 04/11/23 - 04/12/23 [facility] [address] [place] [address]- [place] Encounter Diagnosis Body mass index [BMI] 29.0-29.9, adult(Discharge Diagnosis) - 04/11/23 Change in nail appearance(Discharge Diagnosis) - 04/11/23 CKD (chronic kidney disease)(Discharge Diagnosis) - 04/11/23 Anemia(Discharge Diagnosis) - 04/11/23 Depression(Discharge Diagnosis) - 04/11/23 Hypercholesterolemia(Discharge Diagnosis) - 04/11/23 Hypothyroidism(Discharge Diagnosis) - 04/11/23 Osteoporosis(Discharge Diagnosis) - 04/11/23 Attending Physician: Diane Patel MD Allergies, Adverse Reactions, Alerts Substance Reaction Severity Status Fosamax Bone pain Active Shingrix Rash Active aspirin Rash Moderate Active Assessment and Plan Future Appointments Appointment Date:04/24/2023 11:00:00 AM Scheduled Provider:Ruy Harding Location:[facility] Appointment Type:Established Patient Appointment Date:12/22/2023 09:00:00 AM Scheduled Provider: Location:[facility] Appointment Type:Lab Appointment Date:12/28/2023 10:00:00 AM Scheduled Provider:Diane Patel MD Location:[facility] Appointment Type:Established Patient Future Scheduled Tests Laboratory* Lipid Panel with calculated LDL 04/11/23 * CBC-d 04/11/23 * Iron and TIBC 04/11/23 * TSH 04/11/23 * CMP 04/11/23 Radiology* BD Bone Densitometry 04/11/23 Immunizations Given and Recorded Vaccine Date Status Refusal Reason COVID-19 SARS-CoV-2 mRNA Pfizer (adult) 09/29/22 R ecorded COVID-19 SARS-CoV-2 mRNA Pfizer (adult) 1 03/30/22 Recorded COVID-19 SARS-CoV-2 mRNA Pfizer (adult) 08/11/21 R ecorded COVID-19 SARS-CoV-2 mRNA Pfizer (adult) [...] Zoster Vaccine Live 10/28/10 Given 1Location History: [facility], 2Location History[facility] 3Location History: [facility] Medications acetaminophen-hydrocodone 325 mg-5 mg oral tablet 1 tab, By mouth, QID, PRN for pain, 28 tab, 0, 0, Substitution Permitted Start Date: 09/20/22 Status: Ordered acyclovir 800 mg oral tablet 800 mg = 1 tab, By mouth, 5XD, # 35 tab, Refill(s) 3, [id number], [id number], 1 tab By mouth 5XD,x7 Days, 63, 03/22/21 13:03:00 CDT, in, 75.23, 03/22/21 13:03:00 CDT, kg, Weight Start Date: 03/22/21 Stop Date: 04/19/21 Status: Ordered buPROPion 200 mg/12 hours oral [...] Refill(s) 0 Start Date: 07/19/22 Status: Ordered Euthyrox 50 mcg (0.05 mg) oral tablet = 1 tab, By mouth, Daily, # 90 tab, Refill(s) 5, Pharmacy: [facility], [id number], 1 tab By mouth Daily, 79.2, 04/04/22 10:06:00 CDT, kg, Weight Start Date: 04/04/22 Status: Ordered Fish Oil 500 mg oral [...] every evening., #360 tab, Refill(s) 3, [facility]: [facility], [id number], Instructions Replace Required Details, TAB Start Date: 10/31/16 Status: Ordered latanoprost ophthalmic 0.005% solution 1 Drops, Both Eyes, at bedtime, # 2.5 mL, Refill(s) 0 Start Date: 09/20/19 Status: Ordered MiraLax oral powder for reconstitution [...] Route to Pharmacy Electronically, [facility]: [id number], [id number], 1 application Topical TID, 76.93, 07/19/22 9:26:00 [...] 100 cap, Refill(s) 11, [facility] #[id number], [id number], Instructions Replace Required Details, TAKE 1 CAPSULE BY MOUTH DAILY WITH FOOD, 63, 07... Start Date: 05/26/20 Status: Ordered Xanax 0.5 mg oral tablet 0.5 mg, By mouth, Daily, 30 tab, 0, 0, Substitution Permitted, [id number], 63,Height, 05/25/21 13:11:00 CDT, in, 72.27, Weight, 05/25/21 13:11:00 CDT, kg Start Date: 07/30/21 Status: Ordered Problem List Condition Confirmation Course [...] for colon cancer Confirmed Active Colon polyp Confirmed 2004 Active Postmenopausal Confirmed Active Radicular syndrome [...] Status Sleep study 1 01/11/21 Completed dexa 2 05/11/20 Completed L4-S1 PLIF 01/14/20 Completed R TKA 05/29/19 Completed Removal of hardware right tibia 03/2019 Completed ORIF right radius fracture 2015 Completed external fixator application to right tibia 2014 Completed Colonoscopy 3 10/26/12 Completed Cataract extraction with Int raocular lens, bilateral 2006 Completed Breast lumpectomy 1998 Compl eted tonsillectomy Completed [place] teeth extraction. Completed 1Obstructive sleep apnea, nocturnal hypoxemia, 2Osteoporosis, left forearm T-score is-2.9, left hip T-score is-1.7, right hip T-score is -2.0, bilateral hips bone mineral density has increased by 2.4% since her last exam 3Diverticulosis, repeat 5 years due to history of polyps 4Negative Vital Signs Most recent to oldest [Reference Range]: 1 Blood Pressure 128/60 (04/11/23 10:15 AM) Height (inches) (Clinical) 63 in (04/11/23 10:15 AM) Weight (kg) (Clinical) 74.66 kg (04/11/23 10:15 AM) BMI (Clinical) 29.1 kg/m2 (04/11/23 10:15 AM) Social History Social History Type Response [...] Code MRI Safety Implantable Status Assigning Authority [id number] Unknown [id number] Unknown 07/13/21 Unknown Unknown Active GS1 [id number] 01 Unknown [id number] Unknown 10/29/22 Unknown Unknown Active HIBCC [id number] Unknown [id number] Unknown 05/14/27 Unknown Unknown Active GS1 [id number] 035 Unknown [id number] Unknown 08/01/20 Unknown Unknown Active GS1 [...] Safety Implantable Status Assigning Authority Unknown Unknown [id number] Unknown 12/13/28 Unknown Unknown Active Unknown [id number] Unknown [id number] Unknown 09/12/20 Unknown Unknown Active GS1 [id number] 747 Unknown [id number] Unknown 10/12/20 Unknown Unknown Active GS1 [id number] 747 Unknown [id number] Unknown 10/12/20 Unknown Unknown Active GS1 [id number] 747 Unknown [id number] Unknown 10/12/20 Unknown Unknown Active GS1 [id number] 317 Unknown [id number] Unknown 06/25/23 Unknown Unknown Active GS1 [id number] 085 Unknown [id number] Unknown 01/10/29 Unknown MR Conditi onal Active GS1 Unknown Unknown [id number] Unknown 12/12/23 Unknown Unknown Active Unknown Unknown Unknown [id number] Unknown 08/12/23 Unknown Unknown Active Unknown Patient Care team information Care Team Personnel Name: Diane Patel MD Position: PX Physician - Family Practice Member Role: Primary Care Physician Address: Address: [address], [place] [address] Care Team Related Persons Name: CASSIDY TOBY Address: home Name: CASSIDY TOBY Address: home Name: [place] Address: home
[2023-09-21] MEDS: denosumab 60 mg SDV SUBCUT (13:10)
[2023-09-21 13:30] VITALS: BP 132/78; PULSE 90; RESP 16; TEMP 36.1; O2SAT 99
== END 2023-10-12 23:59 | disposition home or self-care (01) ==
LOC: ONCMED 09:52
PROVIDERS: PCP Family Medicine; Visit Provider Family Medicine
DX: M81.0 Age-related osteoporosis without current pathological fracture (principal)
CPT/HCPCS: 96372; J0897

== ENCOUNTER → 2023-09-28 14:26 | Outpatient (BNVA) | payer MEDICARE, SELFPAY ==
[2022-03-25 13:48] VITALS: BP 153/69; BMI 29.8
== END ==
PROVIDERS: PCP Family Medicine; Referring Provider Dermatology; Visit Provider Orthopaedic Surgery
DX: Z98.1 Arthrodesis status; M43.16 Spondylolisthesis, lumbar region
CPT/HCPCS: 72110; 99204

== ENCOUNTER → 2023-10-17 11:26 | Outpatient (BNVA) | payer MEDICARE, SELFPAY ==
[2022-03-25 13:48] VITALS: BP 153/69; BMI 29.8
== END ==
PROVIDERS: PCP Family Medicine; Visit Provider Specialist
DX: G60.0 Hereditary motor and sensory neuropathy (principal); I65.23 Occlusion and stenosis of bilateral carotid arteries
CPT/HCPCS: 99213

== ENCOUNTER 2023-11-09 10:29 | Outpatient (CLI) | payer MEDICARE, SELFPAY ==
[2022-03-25 13:48] VITALS: BP 153/69; BMI 29.8
--- NOTE | 2023-11-09 11:00 | MR_ITS ---
WS: [id number] MRI LUMBAR SPINE NONCONTRAST TECHNIQUE: Sagittal T1, T2 and STIR imaging. Axial T1 and T2 imaging. CLINICAL INFORMATION: lumbar pain COMPARISON: MRI 2018 FINDINGS: Lumbar curve. No acute compression. Pedicle screw fixation L4-S1. Advanced spondylitic changes. Grade 1 anterolisthesis L4 on L5. Interbody fusion grafts L4-L5 and L5-S1. Postoperative changes are new s lennox 2018. Disc protrusions in the cervical spine with mild to moderate central canal stenosis C3-C4 C5-C6 and C6-C7 seen on the clinical reviewer imaging. L1-L2: Mild annular bulging. Spinal canal and foramen are patent. Mild facet arthropathy. L2-L3: Slight retrolisthesis. Moderate central canal stenosis is new compared to previous with imping ement traversing L3 nerve roots bilaterally. Moderate facet arthropathy. Mild LEFT greater than RIGHT foraminal narrowing. L3-L4: Slight retrolisthesis. Central disc bulging. Moderate to severe central canal stenosis with le ft-right narrowing of the thecal sac. Moderate facet arthropathy. Moderate bilateral foraminal narrow ing. L4-L5: Grade 1 anterolisthesis. Prior laminectomy defects. Slight effacement of the ventral thecal sa c. Mild to moderate bilateral foraminal narrowing. L5-S1: Laminectomy defects. Spinal canal and foramen are patent. Visualized pelvic bony structures: Normal. Paravertebral soft tissues: Normal. 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 IMPRESSION: 1. Postoperative changes pedicle screw fixation L4-S1 with interbody fusion grafts new compared to 2 018. 2. Slight retrolisthesis with progressed disc space narrowing L2-L3 and L3-L4. 3. Moderate central canal stenosis L2-3 is new compared to previous due to slight retrolisthesis wit h central disc bulging. 4. Moderate to severe central canal stenosis L3-4 is new compared to previous with left-right narrow ing of the thecal sac. Impingement subarticular recess bilaterally. Moderate facet arthropathy at thi s level. 5. Moderate bilateral L3-4 foraminal narrowing with impingement exiting L3 nerve roots bilaterally p rogressed compared to previous. 6. Mild to moderate bilateral L4-5 foraminal narrowing. 7. Partially visualized syrinx in the thoracic cord previously evaluated on the prior thoracic spine MRI. 8. Central canal stenosis in the cervical spine on the clinical reviewer imaging appears progressed compared to 2018. Recommend further evaluation with cervical spine MRI.
== END 2023-11-09 10:30 | disposition home or self-care (01) ==
PROVIDERS: PCP Family Medicine; Visit Provider Orthopaedic Surgery
DX: Z98.1 Arthrodesis status (principal); M43.16 Spondylolisthesis, lumbar region; M48.061 Spinal stenosis, lumbar region without neurogenic claudication; M48.02 Spinal stenosis, cervical region
CPT/HCPCS: 72148

== ENCOUNTER → 2023-12-07 11:14 | Outpatient (BNVA) | payer MEDICARE, SELFPAY ==
[2022-03-25 13:48] VITALS: BP 153/69; BMI 29.8
== END ==
PROVIDERS: PCP Family Medicine; Visit Provider Orthopaedic Surgery
DX: M48.062 Spinal stenosis, lumbar region with neurogenic claudication; Z98.1 Arthrodesis status
CPT/HCPCS: 99214

== ENCOUNTER 2023-12-18 10:48 | Outpatient (CLI) | payer MEDICARE, SELFPAY ==
[2022-03-25 13:48] VITALS: BP 153/69; BMI 29.8
--- NOTE | 2023-12-18 10:56 | XRR_ITS ---
PROCEDURE INFORMATION: Exam: XR Left Shoulder Exam date and time: 12/18/2023 11:24 AM Age: 78 years old Clinical indication: Pain; Shoulder; Bilateral; Additional info: Bilateral shoulder pain TECHNIQUE: Imaging protocol: Radiologic exam of the left shoulder. Views: 2 or more views. COMPARISON: CR XR shoulder LT min 2V* [id number] 11/15/2022 9:08 AM FINDINGS: Bones/joints: No acute fracture or dislocation. Joint spaces are preserved. Soft tissues: Normal. XR/XR shoulder LT min 2V* [id number] IMPRESSION: No acute fracture or dislocation.
--- NOTE | 2023-12-18 10:56 | XRR_ITS ---
PROCEDURE INFORMATION: Exam: XR Right Shoulder Exam date and time: 12/18/2023 11:24 AM Age: 78 years old Clinical indication: Pain; Shoulder; Bilateral; Additional info: Bilateral shoulder pain TECHNIQUE: Imaging protocol: Radiologic exam of the right shoulder. Views: 2 or more views. COMPARISON: CT chest w con* [id number] 10/04/2019 2:44 PM FINDINGS: Bones/joints: No acute fracture or dislocation. Joint spaces are preserved. Soft tissues: Normal. XR/XR shoulder RT min 2V* [id number] IMPRESSION: No acute fracture or dislocation.
== END 2023-12-18 10:49 | disposition home or self-care (01) ==
LOC: RAD 10:52
PROVIDERS: PCP Family Medicine; Visit Provider Family Medicine
DX: M25.511 Pain in right shoulder (principal); M25.512 Pain in left shoulder
CPT/HCPCS: 73030

== ENCOUNTER → 2024-01-10 09:49 | Outpatient (BNVA) | payer MEDICARE, SELFPAY ==
[2022-03-25 13:48] VITALS: BP 153/69; BMI 29.8
== END ==
PROVIDERS: PCP Family Medicine; Visit Provider Anesthesiology Pain Medicine
DX: M48.062 Spinal stenosis, lumbar region with neurogenic claudication (principal); R20.0 Anesthesia of skin; G60.0 Hereditary motor and sensory neuropathy; G62.9 Polyneuropathy, unspecified
CPT/HCPCS: 99204

== ENCOUNTER → 2024-02-26 11:57 | Outpatient (BNVA) | payer MEDICARE, SELFPAY ==
[2022-03-25 13:48] VITALS: BP 153/69; BMI 29.8
== END ==
PROVIDERS: PCP Family Medicine; Visit Provider Internal Medicine
DX: M81.0 Age-related osteoporosis without current pathological fracture (principal); E55.9 Vitamin D deficiency, unspecified; F33.1 Major depressive disorder, recurrent, moderate
CPT/HCPCS: 36415; 80053; 82306; 82310; 83970; 84439; 84443; 99214

== ENCOUNTER → 2024-06-13 13:04 | Outpatient (BNVA) | payer MEDICARE, SELFPAY ==
[2022-03-25 13:48] VITALS: BP 153/69; BMI 29.8
== END ==
PROVIDERS: PCP Family Medicine; Visit Provider Podiatrist Foot & Ankle Surgery
DX: G62.9 Polyneuropathy, unspecified (principal); I73.9 Peripheral vascular disease, unspecified; M20.41 Other hammer toe(s) (acquired), right foot; M20.42 Other hammer toe(s) (acquired), left foot
CPT/HCPCS: 99213

== ENCOUNTER → 2024-07-25 10:37 | Outpatient (BNVA) | payer MEDICARE, SELFPAY ==
[2022-03-25 13:48] VITALS: BP 153/69; BMI 29.8
== END ==
PROVIDERS: PCP Family Medicine; Visit Provider Nurse Practitioner Family
DX: L57.8 Other skin changes due to chronic exposure to nonionizing radiation (principal); L57.0 Actinic keratosis; L82.1 Other seborrheic keratosis; L81.4 Other melanin hyperpigmentation; D18.01 Hemangioma of skin and subcutaneous tissue
CPT/HCPCS: 17000; 99213

== ENCOUNTER → 2024-08-19 13:23 | Outpatient (BNVA) | payer MEDICARE, SELFPAY ==
[2022-03-25 13:48] VITALS: BP 153/69; BMI 29.8
== END ==
PROVIDERS: PCP Family Medicine; Visit Provider Podiatrist Foot & Ankle Surgery
DX: G62.9 Polyneuropathy, unspecified (principal); I73.9 Peripheral vascular disease, unspecified; M20.41 Other hammer toe(s) (acquired), right foot; M20.42 Other hammer toe(s) (acquired), left foot
CPT/HCPCS: 99213

== ENCOUNTER → 2024-08-27 11:18 | Outpatient (BNVA) | payer MEDICARE, SELFPAY ==
[2022-03-25 13:48] VITALS: BP 153/69; BMI 29.8
== END ==
PROVIDERS: PCP Family Medicine; Visit Provider Internal Medicine
DX: M81.0 Age-related osteoporosis without current pathological fracture (principal); E55.9 Vitamin D deficiency, unspecified
CPT/HCPCS: 36415; 80053; 82306; 99214

== ENCOUNTER 2024-09-04 15:29 | Oncology outpatient (recurring) (ONCR) | payer MEDICARE, SELFPAY ==
[2022-03-25 13:48] VITALS: BP 153/69; BMI 29.8
[2024-09-04] MEDS: denosumab 60 mg SDV SUBCUT (15:49)
[2024-09-04 16:05] VITALS: BP 132/76; PULSE 74; RESP 16; TEMP 36.6; O2SAT 96
== END 2024-09-12 23:59 | disposition home or self-care (01) ==
PROVIDERS: PCP Family Medicine; Visit Provider Family Medicine
DX: M81.0 Age-related osteoporosis without current pathological fracture (principal); Z79.899 Other long term (current) drug therapy
CPT/HCPCS: 96372; J0897

== ENCOUNTER 2024-09-06 08:57 | Outpatient (CLI) | payer MEDICARE, SELFPAY ==
[2022-03-25 13:48] VITALS: BP 153/69; BMI 29.8
[2024-09-06 10:01] LABS: Alanine Aminotransferase 8 U/L (0-33); Albumin Level 3.7 g/dL (3.5-5.2); Alkaline Phosphatase 93 U/L (35-105); Anion Gap 12.2 (5-19); Aspartate Amino Transferase 17 U/L (0-32); Blood Urea Nitrogen 14 mg/dL (8-23); Calcium 8.7 mg/dL (8.5-10.5); Carbon Dioxide 27 mmol/L (22-29); Chloride 103 mmol/L (98-107); Globulin 2.9 g/dL (1.3-4.6); Glucose 99 mg/dL (65-115); Osmolality Calculated 287 mOsm/kg (285-295); Potassium 4.2 mmol/L (3.5-5.1); Sodium 138 mmol/L (136-145); Total Bilirubin 0.3 mg/dL (0.15-1.2); Total Protein 6.6 g/dL (6.6-8.7)
[2024-09-06 10:17] LABS: 25 Hydroxy Vitamin D 92 ng/mL (30-100)
== END 2024-09-06 08:58 | disposition home or self-care (01) ==
LOC: LAB 08:59
PROVIDERS: Family Medicine; PCP Family Medicine; Visit Provider Internal Medicine
DX: R74.8 Abnormal levels of other serum enzymes (principal); M81.0 Age-related osteoporosis without current pathological fracture; E55.9 Vitamin D deficiency, unspecified
CPT/HCPCS: 36415; 80048; 80053; 82306

== ENCOUNTER → 2024-10-16 11:48 | Outpatient (BNVA) | payer MEDICARE, SELFPAY ==
[2022-03-25 13:48] VITALS: BP 153/69; BMI 29.8
== END ==
PROVIDERS: PCP Family Medicine; Visit Provider Specialist
DX: G60.0 Hereditary motor and sensory neuropathy (principal); G45.9 Transient cerebral ischemic attack, unspecified; R03.0 Elevated blood-pressure reading, without diagnosis of hypertension
CPT/HCPCS: 99214

== ENCOUNTER → 2024-11-07 08:38 | Outpatient (BNVA) | payer MEDICARE, SELFPAY ==
[2022-03-25 13:48] VITALS: BP 153/69; BMI 29.8
== END ==
PROVIDERS: PCP Family Medicine; Visit Provider Nurse Practitioner Family
DX: L57.8 Other skin changes due to chronic exposure to nonionizing radiation (principal); L81.4 Other melanin hyperpigmentation; D22.39 Melanocytic nevi of other parts of face; L82.1 Other seborrheic keratosis; L82.0 Inflamed seborrheic keratosis; L57.0 Actinic keratosis
CPT/HCPCS: 17000; 99213

== ENCOUNTER → 2025-01-22 13:59 | Outpatient (BNVA) | payer MEDICARE, SELFPAY ==
[2022-03-25 13:48] VITALS: BP 153/69; BMI 29.8
== END ==
PROVIDERS: PCP Family Medicine; Visit Provider Specialist
DX: M18.12 Unilateral primary osteoarthritis of first carpometacarpal joint, left hand (principal)
CPT/HCPCS: 20600; 73130; 99213; J1100; J2795; J3301; J9999

== ENCOUNTER → 2025-01-28 14:28 | Outpatient (BNVA) | payer MEDICARE, SELFPAY ==
[2022-03-25 13:48] VITALS: BP 153/69; BMI 29.8
== END ==
PROVIDERS: PCP Family Medicine; Visit Provider Orthopaedic Surgery
DX: M48.062 Spinal stenosis, lumbar region with neurogenic claudication (principal)
CPT/HCPCS: 72100; 99213

== ENCOUNTER 2025-02-04 09:36 | Oncology outpatient (recurring) (ONCR) | payer MEDICARE, SELFPAY ==
[2022-03-25 13:48] VITALS: BP 153/69; BMI 29.8
--- NOTE | 2025-02-04 10:15 | MR_ITS ---
WS: [id number] MRI LUMBAR SPINE NONCONTRAST HISTORY: back pain COMPARISON: 11/09/2023 TECHNIQUE: Sagittal and axial multisequence imaging is submitted. Mild lumbar curvature. Pedicle screw fixation at L4-S1. Advanced degenerative spondylitic changes throughout the lumbar spine. Grade 1 anterolisthesis of L4 and L5. Mild retrolisthesis of L1-L3. Interbody fusion graft at L4-5 and L5-S1. Diffusely narrow disc spaces. Very similar to the prior study from 2022. Conus terminates normally at L1-2 disc level. L1-L2: Diffuse annular disc bulging. Mild foraminal stenosis. L2-L3: Diffuse annular disc bulging and osteophytic ridging. Mild retrolisthesis of L2. Moderate central stenosis impinging upon the traversing L3 nerve roots. Moderate bilateral facet arthritis. Mild to moderate bilateral foraminal stenosis, LEFT greater than RIGHT. L3-L4: Severe diffuse annular disc bulging with osteophytic ridging. Severe ligamentum flavum hypertrophy. Fluid in the facet joints. Severe central, bilateral subarticular recess and foraminal stenosis has slightly progressed. New marrow edema in the adjacent posterior endplates of L3 and L4. L4-L5: Annular disc bulging with a large posterior laminectomy defect. Effacement of the ventral thecal sac. Moderate bilateral foraminal stenosis. L5-S1: Posterior laminectomy defects. Small central disc protrusion. Mild to moderate bilateral foraminal stenosis. MR/MR lumbar spine wo con* [id number] IMPRESSION: 1. Prior posterior lumbar fusion from L4-S1 with interbody spacers. 2. L3-4: Severe central, bilateral subarticular recess and foraminal stenosis which is slightly progressed since the prior exam. New marrow edema in the endp lates of L3 and L4. 3. L4-5: Large posterior laminectomy defect. Moderate bilateral foraminal sten osis. 4. L5-S1: Small central disc protrusion with mild to moderate bilateral forami nal stenosis. 5. L2-3: Moderate central stenosis with disc impinging upon the traversing L3 nerve roots. Mild to moderate bilateral foraminal stenosis, LEFT greater than R IGHT. No progression.
== END 2025-02-10 23:59 | disposition home or self-care (01) ==
LOC: RAD 09:38 → ONCMED 14:10
PROVIDERS: PCP Family Medicine; Visit Provider Orthopaedic Surgery
DX: M81.0 Age-related osteoporosis without current pathological fracture (principal); Z79.899 Other long term (current) drug therapy; M48.062 Spinal stenosis, lumbar region with neurogenic claudication
CPT/HCPCS: 72148

== ENCOUNTER → 2025-02-25 14:31 | Outpatient (BNVA) | payer MEDICARE, SELFPAY ==
[2022-03-25 13:48] VITALS: BP 153/69; BMI 29.8
== END ==
PROVIDERS: PCP Family Medicine; Visit Provider Dermatology
DX: L85.3 Xerosis cutis (principal); L81.4 Other melanin hyperpigmentation; D48.5 Neoplasm of uncertain behavior of skin
CPT/HCPCS: 11102; 99213

== ENCOUNTER → 2025-02-27 08:56 | Outpatient (BNVA) | payer MEDICARE, SELFPAY ==
[2022-03-25 13:48] VITALS: BP 153/69; BMI 29.8
== END ==
PROVIDERS: PCP Family Medicine; Visit Provider Orthopaedic Surgery
DX: M48.062 Spinal stenosis, lumbar region with neurogenic claudication (principal); Z09 Encounter for follow-up examination after completed treatment for conditions other than malignant neoplasm
CPT/HCPCS: 99214

== ENCOUNTER → 2025-03-06 10:41 | Outpatient (BNVA) | payer MEDICARE, SELFPAY ==
[2022-03-25 13:48] VITALS: BP 153/69; BMI 29.8
== END ==
PROVIDERS: PCP Family Medicine; Visit Provider Nurse Practitioner Family
DX: M48.062 Spinal stenosis, lumbar region with neurogenic claudication (principal); R20.0 Anesthesia of skin; G60.0 Hereditary motor and sensory neuropathy; G62.9 Polyneuropathy, unspecified
CPT/HCPCS: 99213

== ENCOUNTER 2025-03-10 11:27 | Oncology outpatient (recurring) (ONCR) | payer MEDICARE, SELFPAY ==
[2022-03-25 13:48] VITALS: BP 153/69; BMI 29.8
[2025-03-10] MEDS: denosumab 60 mg SDV SUBCUT (11:45)
== END 2025-03-12 23:59 | disposition home or self-care (01) ==
PROVIDERS: PCP Family Medicine; Visit Provider Orthopaedic Surgery
DX: M81.0 Age-related osteoporosis without current pathological fracture (principal); Z79.899 Other long term (current) drug therapy; M48.062 Spinal stenosis, lumbar region with neurogenic claudication; R20.0 Anesthesia of skin; G60.0 Hereditary motor and sensory neuropathy
CPT/HCPCS: 20553; 96372; 99214; J0897; J1010; J3490

== ENCOUNTER → 2025-03-24 13:55 | Outpatient (BNVA) | payer MEDICARE, SELFPAY ==
[2022-03-25 13:48] VITALS: BP 153/69; BMI 29.8
== END ==
PROVIDERS: PCP Family Medicine; Visit Provider Nurse Practitioner Family
DX: M48.062 Spinal stenosis, lumbar region with neurogenic claudication (principal); R20.0 Anesthesia of skin; G60.0 Hereditary motor and sensory neuropathy; G62.9 Polyneuropathy, unspecified
CPT/HCPCS: 99214

== ENCOUNTER → 2025-04-24 10:30 | Outpatient (BNVA) | payer MEDICARE, SELFPAY ==
[2022-03-25 13:48] VITALS: BP 153/69; BMI 29.8
== END ==
PROVIDERS: PCP Family Medicine; Visit Provider Nurse Practitioner Family
DX: M48.062 Spinal stenosis, lumbar region with neurogenic claudication (principal); R20.0 Anesthesia of skin; G60.0 Hereditary motor and sensory neuropathy; G62.9 Polyneuropathy, unspecified
CPT/HCPCS: 99214

== ENCOUNTER → 2025-05-07 09:22 | Outpatient (BNVA) | payer MEDICARE, SELFPAY ==
[2022-03-25 13:48] VITALS: BP 153/69; BMI 29.8
== END ==
PROVIDERS: PCP Family Medicine; Visit Provider Anesthesiology Pain Medicine
DX: M47.816 Spondylosis without myelopathy or radiculopathy, lumbar region (principal); M48.062 Spinal stenosis, lumbar region with neurogenic claudication; M54.9 Dorsalgia, unspecified
CPT/HCPCS: 64493; 64494; 64495; J3490; J9999

== ENCOUNTER 2025-05-21 08:56 | Outpatient (CLI) | payer MEDICARE, SELFPAY ==
[2022-03-25 13:48] VITALS: BP 153/69; BMI 29.8
[2025-05-21 10:06] LABS: Alanine Aminotransferase 7 U/L (0-33); Albumin Level 3.8 g/dL (3.5-5.2); Alkaline Phosphatase 76 U/L (35-105); Anion Gap 16.2 (5-19); Aspartate Amino Transferase 14 U/L (0-32); Blood Urea Nitrogen 15 mg/dL (8-23); Calcium 9.5 mg/dL (8.5-10.5); Carbon Dioxide 24 mmol/L (22-29); Chloride 105 mmol/L (98-107); Globulin 2.9 g/dL (1.3-4.6); Glucose 103 mg/dL (65-115); Osmolality Calculated 293 mOsm/kg (285-295); Potassium 4.2 mmol/L (3.5-5.1); Sodium 141 mmol/L (136-145); Total Protein 6.7 g/dL (6.6-8.7)
== END 2025-05-21 08:57 | disposition home or self-care (01) ==
PROVIDERS: PCP Nurse Practitioner Family; Visit Provider Internal Medicine
DX: M81.0 Age-related osteoporosis without current pathological fracture (principal); M48.062 Spinal stenosis, lumbar region with neurogenic claudication; R20.0 Anesthesia of skin; G60.0 Hereditary motor and sensory neuropathy; G62.9 Polyneuropathy, unspecified; Z87.891 Personal history of nicotine dependence
CPT/HCPCS: 36415; 80053; 82306; 99214

== ENCOUNTER → 2025-05-27 11:20 | Outpatient (BNVA) | payer MEDICARE, SELFPAY ==
[2022-03-25 13:48] VITALS: BP 153/69; BMI 29.8
== END ==
PROVIDERS: PCP Family Medicine; Visit Provider Internal Medicine
DX: M81.0 Age-related osteoporosis without current pathological fracture (principal); E55.9 Vitamin D deficiency, unspecified
CPT/HCPCS: 99214

== ENCOUNTER → 2025-06-04 14:02 | Outpatient (BNVA) | payer MEDICARE, SELFPAY ==
[2022-03-25 13:48] VITALS: BP 153/69; BMI 29.8
== END ==
PROVIDERS: PCP Nurse Practitioner Family; Visit Provider Anesthesiology Pain Medicine
DX: D04.39 Carcinoma in situ of skin of other parts of face (principal); L82.1 Other seborrheic keratosis; L85.3 Xerosis cutis; L81.4 Other melanin hyperpigmentation; L57.8 Other skin changes due to chronic exposure to nonionizing radiation; D22.39 Melanocytic nevi of other parts of face; I78.8 Other diseases of capillaries; M47.816 Spondylosis without myelopathy or radiculopathy, lumbar region; M48.062 Spinal stenosis, lumbar region with neurogenic claudication
CPT/HCPCS: 99213; J3490; J9999

== ENCOUNTER → 2025-06-18 09:13 | Outpatient (BNVA) | payer MEDICARE, SELFPAY ==
[2022-03-25 13:48] VITALS: BP 153/69; BMI 29.8
== END ==
PROVIDERS: PCP Nurse Practitioner Family; Visit Provider Nurse Practitioner Family
DX: M48.062 Spinal stenosis, lumbar region with neurogenic claudication (principal); R20.0 Anesthesia of skin; G60.0 Hereditary motor and sensory neuropathy; G62.9 Polyneuropathy, unspecified
CPT/HCPCS: 99214

== ENCOUNTER 2025-07-03 11:30 | Outpatient (CLI) | payer MEDICARE, SELFPAY ==
[2025-06-24 11:50] VITALS: BP 153/69; BMI 29.8
--- NOTE | 2025-07-03 11:42 | XRR_ITS ---
XR/XR shoulder RT min 2V* [id number] PROCEDURE INFORMATION: Exam: XR Right Shoulder Exam date and time: 07/03/2025 11:53 AM Age: 80 years old Clinical indication: Right; PT states her shoulder is crunching & pain all over while using shoulder x few months. ; Additional info: Pain in R shoulder TECHNIQUE: Imaging protocol: Radiologic exam of the right shoulder. Views: 2 or more views. COMPARISON: CR XR shoulder RT min 2V* [id number] 12/18/2023 11:24 AM FINDINGS/IMPRESSION: Bones/joints: There is no suggestion of a right shoulder fracture or dislocation. There are [id number] chronic osteoarthritic changes of the glenohumeral joint including subcortical degenerative cystic changes and mild bony sclerosis of the glenoid. There is also lateral downsloping of the acromion which narrows the acromial humeral joint space and puts the patient at risk for rotator cuff impingement. The right clavicle and right upper ribs are intact. Soft tissues: Normal.
== END 2025-07-03 11:31 | disposition home or self-care (01) ==
PROVIDERS: PCP Family Medicine; Visit Provider Nurse Practitioner Family
DX: M19.011 Primary osteoarthritis, right shoulder (principal)
CPT/HCPCS: 73030

== ENCOUNTER → 2025-07-04 10:19 | Outpatient (BNVA) | payer MEDICARE, SELFPAY ==
[2025-06-24 11:50] VITALS: BP 153/69; BMI 29.8
== END ==
PROVIDERS: PCP Family Medicine; Visit Provider Specialist
DX: M18.12 Unilateral primary osteoarthritis of first carpometacarpal joint, left hand (principal)
CPT/HCPCS: 20600; J1100; J2795; J3301; J9999

== ENCOUNTER → 2025-07-07 14:33 | Outpatient (BNVA) | payer MEDICARE, SELFPAY ==
[2025-06-24 11:50] VITALS: BP 153/69; BMI 29.8
== END ==
PROVIDERS: PCP Nurse Practitioner Family; Visit Provider Specialist
DX: M19.011 Primary osteoarthritis, right shoulder (principal); M25.811 Other specified joint disorders, right shoulder
CPT/HCPCS: 73030; 99214

== ENCOUNTER 2025-07-09 09:55 | Outpatient (CLI) | payer MEDICARE, SELFPAY ==
[2025-06-24 11:50] VITALS: BP 153/69; BMI 29.8
--- NOTE | 2025-07-09 10:00 | MM_ITS ---
WS: [id number] BILATERAL 3D TOMOSYNTHESIS DIGITAL SCREENING MAMMOGRAPHY WITH CAD CLINICAL INFORMATION: SCREENING HISTORY: Screening mammogram. No current complaints. COMPARISON: 2022 TECHNIQUE: Bilateral CC and MLO views. FINDINGS: Scattered fibroglandular densities bilaterally. No suspicious focal mass, asymmetry, calcifications, or architectural distortion. No evidence of malignancy. Vascular calcification. MM/MM scr tomosynthesis [id number] IMPRESSION: DENSITY: There are scattered areas of fibroglandular density. BI-RADS: 2 - Benign. FOLLOW UP: 1 Year Follow-up Recommend return to annual screening mammography.
== END 2025-07-09 09:56 | disposition home or self-care (01) ==
LOC: MOBLMAM 09:58
PROVIDERS: PCP Nurse Practitioner Family; Visit Provider Nurse Practitioner Family
DX: Z12.31 Encounter for screening mammogram for malignant neoplasm of breast (principal); R92.323 Mammographic fibroglandular density, bilateral breasts; R92.1 Mammographic calcification found on diagnostic imaging of breast
CPT/HCPCS: 77063; 77067

== ENCOUNTER → 2025-07-22 13:03 | Outpatient (BNVA) | payer MEDICARE, SELFPAY ==
[2025-06-24 11:50] VITALS: BP 153/69; BMI 29.8
== END ==
PROVIDERS: PCP Nurse Practitioner Family; Visit Provider Anesthesiology Pain Medicine
DX: M47.816 Spondylosis without myelopathy or radiculopathy, lumbar region (principal)
CPT/HCPCS: 64635; 64636; J1100; J9999

== ENCOUNTER → 2025-08-05 12:42 | Outpatient (BNVA) | payer MEDICARE, SELFPAY ==
[2025-06-24 11:50] VITALS: BP 153/69; BMI 29.8
== END ==
PROVIDERS: PCP Nurse Practitioner Family; Visit Provider Anesthesiology Pain Medicine
DX: M47.816 Spondylosis without myelopathy or radiculopathy, lumbar region (principal)
CPT/HCPCS: 64635; 64636; J1100; J9999

== ENCOUNTER → 2025-08-19 09:29 | Outpatient (BNVA) | payer MEDICARE, SELFPAY ==
[2025-06-24 11:50] VITALS: BP 153/69; BMI 29.8
== END ==
PROVIDERS: PCP Nurse Practitioner Family; Visit Provider Nurse Practitioner Family
DX: M48.062 Spinal stenosis, lumbar region with neurogenic claudication (principal); G62.9 Polyneuropathy, unspecified
CPT/HCPCS: 99214

== ENCOUNTER → 2025-09-30 08:44 | Outpatient (BNVA) | payer MEDICARE, SELFPAY ==
[2025-06-24 11:50] VITALS: BP 153/69; BMI 29.8
== END ==
PROVIDERS: PCP Nurse Practitioner Family; Visit Provider Nurse Practitioner Family
DX: M48.062 Spinal stenosis, lumbar region with neurogenic claudication (principal); G60.0 Hereditary motor and sensory neuropathy; G62.9 Polyneuropathy, unspecified
CPT/HCPCS: 99214

== ENCOUNTER → 2025-10-13 10:14 | Outpatient (BNVA) | payer MEDICARE, SELFPAY ==
[2025-06-24 11:50] VITALS: BP 153/69; BMI 29.8
== END ==
PROVIDERS: PCP Nurse Practitioner Family; Visit Provider Specialist
DX: G60.0 Hereditary motor and sensory neuropathy (principal); G45.9 Transient cerebral ischemic attack, unspecified; R03.0 Elevated blood-pressure reading, without diagnosis of hypertension
CPT/HCPCS: 99212

== ENCOUNTER 2025-10-22 11:42 | Oncology outpatient (recurring) (ONCR) | payer MEDICARE, SELFPAY ==
[2025-06-24 11:50] VITALS: BP 153/69; BMI 29.8
[2025-10-22 12:12] VITALS: BP 124/74; PULSE 68; RESP 16; TEMP 36.8; O2SAT 96
[2025-10-22] MEDS: denosumab-bbdz 60 MG Syringe SUBCUT (12:12)
== END 2025-11-12 23:59 | disposition home or self-care (01) ==
PROVIDERS: PCP Nurse Practitioner Family; Visit Provider Internal Medicine
DX: M81.0 Age-related osteoporosis without current pathological fracture (principal); Z79.899 Other long term (current) drug therapy
CPT/HCPCS: 96372; Q5136